=== PATIENT | female | born 1995 | race Caucasian/White ===

== ENCOUNTER 2019-03-06 19:58 | Emergency (ER) | payer SELFPAY ==
[2019-03-06 20:03] VITALS: BP 135/80; PULSE 90; TEMP 98; BMI 19.2
--- NOTE | 2019-03-06 20:18 | PDOC ---
History of Present Illness - General Chief Complaint: Pain Stated Complaint: ABD PAIN Time Seen by Provider: 03/06/19 20:17 - History of Present Illness Initial Comments: 03/06/19 20:25 The patient is a 23 year old female with a history of an arrhythmia who presents for evaluation of abdominal pain. The patient reports LUQ burning/ achy abdominal pain since this morning prompting her presentation to the ED for further evaluation. She states that the patient has been intermittent over the past few weeks, however has been more constant today. She notes that her symptoms worsen after meals as well. She notes a sensation of a fullness in the LUQ as well, but otherwise denies fevers, chills, SOB, chest pain, nausea, vomiting, or changes with urination or bowel movements. Of note, the patient has been using ibuprofen every other day for pain management as well. Past History - Past Medical History Allergies/Adverse Reactions: Allergies Allergy/AdvReac Type Severity Reaction Status Date / Time No Known Allergies Allergy Verified 03/06/19 20:03 Home Medications: Ambulatory Orders NK [No Known Home Medication] 03/06/19 Cardiac Disorders: Yes (ARYTHMIA) COPD: No - Surgical History Cardiac Surgery: Yes (ABLATION) - Suicide/Smoking/Psychosocial Hx Smoking History: Never smoked Review of Systems - Review of Systems Comments:: 03/06/19 20:27 Constitutional: No fevers, chills, fatigue, malaise HEENT: No Rhinorrhea, nasal congestion, visual changes Cardiovascular: No chest pain, syncope, palpitations, lightheadedness Respiratory: No Cough, SOB, Hemoptysis, Gastrointestinal: Abdominal pain. No Nausea, Vomiting, Constipation, Diarrhea, Melena Genitourinary: No Dysuria, Frequency, Urgency, Hesitancy, Hematuria, Flank pain Musculoskeletal: No Myalgia, arthralgia Skin: No rashes, itching, bruising, pallor Neurologic: No Headache, Dizziness, Numbness, Weakness, or Tingling Psychiatric: No Hallucinations. No SI or HI *Physical Exam - Vital Signs Last Vital Signs Temp Pulse Resp BP Pulse Ox 98.0 F 90 18 135/80 99 03/06/19 20:01 03/06/19 20:01 03/06/19 20:01 03/06/19 20:01 03/06/19 20:01 - Physical Exam Comments: 03/06/19 20:28 General Appearance: Nourished. No Apparent Distress HEENT: No Pharyngeal Erythema, Tonsillar Exudate, Tonsillar Erythema Neck: No Cervical Lymphadenopathy Respiratory/Chest: Lungs Clear, Normal Breath Sounds. No Crackles, Rales, Rhonchi, Wheezing Cardiovascular: Regular Rhythm, Regular Rate. No Murmur, Gallops, Rubs Gastrointestinal/Abdominal: Normal Bowel Sounds, Soft. No Guarding, Rebound, Tenderness Musculoskeletal: No CVA Tenderness Extremity: Normal Capillary Refill Integumentary: Normal Color, Dry, Warm Neurologic: Fully Oriented, Alert, Normal Mood/Affect, Normal Response, ED Treatment Course - LABORATORY CBC & Chemistry Diagram: 03/06/19 20:38 03/06/19 20:38 Medical Decision Making - Medical Decision Making 03/06/19 20:28 The patient is a 23 year old female with a history of an arrhythmia who presents for evaluation of abdominal pain. Differential includes but is not limited to: Gastritis, Pancreatitis, Cholecystitis, Infectious, Metabolic Derangement. Given the patient's history and physical exam, it is likely the patient's symptoms are due to a gastritis. However, we will obtain a cbc, cmp, lipase, test to evaluate further. We will treat with pepcid, iv fluids, and maloox and continue to monitor and reassess while here in the ED. 03/06/19 21:31 CBC, cmp, lipase, are unremarkable. The patient was reassessed and reports improvement in their symptoms. We are comfortable discharging the patient home in stable condition. Patient and family made aware of impression and plan, return precautions discussed including but not limited to worsening pain or symptoms, fevers, or signs of infection, chest pain, respiratory distress, inability to tolerate oral intake, dehydration, syncope, or neurologic changes. The patient is to follow up with PMD as recommended within 1 week, follow up information provided and the patient will call for an appointment. The patient is to take medications as instructed for duration of time and continue with supportive care, avoid triggers and precipitants. Patient is safe for outpatient follow-up. *DC/Admit/Observation/Transfer Diagnosis at time of Disposition: Abdominal pain Qualifiers: Abdominal location: unspecified location Qualified Code(s): R10.9 - Unspecified abdominal pain - Discharge Dispostion Disposition: HOME Condition at time of disposition: Stable Decision to Admit order: No - Referrals Referrals: Arianna Owen [Primary Care Provider] - - Patient Instructions Printed Discharge Instructions: JOHN Corbett Additional Instructions: 1) Please follow-up with your primary care doctor in the next 2-3 days. Please call tomorrow to schedule a follow up appointment. If you cannot follow up with your doctor within 1 week please return to the Emergency Department for any urgent issues. 2) Your laboratory / imaging results were normal here in the ER. 3) If you have any worsening of symptoms or any other concerns please return to the ER immediately. Return if worsening symptoms including fevers, headache, vomiting, visual or hearing disturbances, abdominal pain, chest pain, shortness of breath, syncope, dehydration, inability to take things by mouth/vomiting, altered mental status, or worsening concerning symptoms. 4) Please continue taking your home medications as directed. Your medications on discharge include Maloox and Pepcid. - Post Discharge Activity
[2019-03-06] MEDS ORDERED: FAMOTIDINE 20 MG/50 ML IVPB 20 MG/50 ML MG IVPB ONE ×2 (20:24→20:50)
[2019-03-06] MEDS ORDERED: SODIUM CHLORIDE 1,000 ML IV STA (20:24)
[2019-03-06] MEDS ORDERED: MAG HYDROX/AL HYDROX/SIMETH 30 ML UNIT-DOSE CUP PO ONE (20:25)
[2019-03-06 20:47] LABS: BASO % 0.9 % (0-2.0); EOS % 2.3 % (0-4.5); HEMOGLOBIN 12.8 GM/dL (10.7-15.3); LYMPH % 25.6 % (8-40); MCH 31.8 pg (25.7-33.7); MCHC 33.8 g/dl (32.0-36.0); MEAN CELL VOLUME 93.9 fl (80-96); MEAN PLT VOLUME 7.9 fl (7.5-11.1); MONO % 7.8 % (3.8-10.2); NEUT % 63.4 % (42.8-82.8); PLATELET COUNT 217 K/MM3 (134-434); RBC 4.04 M/mm3 (3.60-5.2); RDW 13.4 % (11.6-15.6); WHITE BLOOD COUNT 5.2 K/mm3 (4.0-10.0)
--- NOTE | 2019-03-06 20:47 | PDOC ---
Attending Attestation - HPI HPI: The patient is a 23 year old female, with a significant past medical history of Afib (s/p ablation), who presents to the emergency department with, intermittent burning LUQ pain constant today and worsened with meals. She endorses taking Ibuprofen, with minimal relief. She denies recent fevers, chills, headache or dizziness. She denies recent nausea, vomit, diarrhea or constipation. She denies recent dysuria, frequency, urgency or hematuria. She denies recent chest pain or shortness of breath. Allergies: NKDA Primary Care Physician: Dr. Owen - Physicial Exam PE: 03/06/19 21:35 GENERAL: Well-appearing, well-nourished. No apparent distress. HEENT: Normocephalic, atraumatic. PERRL, EOM intact. CARDIOVASCULAR: Normal S1, S2. Regular rate and rhythm. PULMONARY: Clear to auscultation bilaterally. ABDOMEN: Soft, non-distended, non-tender. EXTREMITIES: Normal ROM in all four extremities. No gross deformities. SKIN: Warm, dry. No rash NEUROLOGICAL: No focal neurological deficits. <Bandar Resendez - Last Filed: 03/06/19 21:35> - Resident Resident Name: Amanuel Caro - ED Attending Attestation I have performed the following: I have examined & evaluated the patient, The case was reviewed & discussed with the resident, I agree w/resident's findings & plan, Exceptions are as noted - HPI HPI: 03/06/19 20:46 23 yo female has had - Medical Decision Making 03/06/19 21:30 23-year-old female has had some gastric burning for which she has been taking NSAIDs. She has benign abdominal exam. She has a negative test. Impression gastritis. She was informed to try PPIs or Maalox when she has this burning feeling. Instead of Motrin d/c home <Mallory Jasmine - Last Filed: 03/06/19 21:45> Attestations - Attestations 03/06/19 21:10 Documentation prepared by Bandar Resendez, acting as medical sales consultant for Mallory Jasmine MD. <Bandar Resendez - Last Filed: 03/06/19 21:35>
[2019-03-06] MEDS ORDERED: MAG HYDROX/AL HYDROX/SIMETH 30 ML UNIT-DOSE CUP ONE (20:50)
[2019-03-06 21:14] LABS: ALK PHOS 49 U/L (45-117); ANION GAP 4 MMOL/L (8-16); BILIRUBIN,TOTAL 0.3 mg/dL (0.2-1); BLOOD UREA NITROGEN 17 mg/dL (7-18); CALCIUM 8.9 mg/dL (8.5-10.1); CHLORIDE 106 mmol/L (98-107); CO2 29 mmol/L (21-32); CREATININE 0.6 mg/dL (0.55-1.3); GLUCOSE,RANDOM 106 mg/dL (74-106); LIPASE 160 U/L (73-393); POTASSIUM 3.6 mmol/L (3.5-5.1); SGOT/AST 11 U/L (15-37); SGPT/ALT 19 U/L (13-61); SODIUM 139 mmol/L (136-145); TOT PROT 7.4 g/dl (6.4-8.2)
== END 2019-03-06 21:41 | disposition home or self-care (01) ==
LOC: JER 19:58
PROC: 3E033GC Introduction of Other Therapeutic Substance into Peripheral Vein, Percutaneous Approach (ICD-10-PCS; principal; 2019-03-06)
DX: R10.9 Unspecified abdominal pain (principal); Z86.79 Personal history of other diseases of the circulatory system
CPT/HCPCS: 36415; 80053; 83690; 84703; 85025; 99283-25; J7030

== ENCOUNTER 2019-06-30 00:39 | Emergency (ER) | payer OTHER ==
[2019-06-30 01:45] VITALS: BP 110/69; PULSE 75; TEMP 98.1; BMI 18.6
--- NOTE | 2019-06-30 02:21 | PDOC ---
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
[2019-06-30] MEDS ORDERED: ACETAMINOPHEN 500 MG TABLET (FP) PO ONE (02:59)
[2019-06-30] MEDS ORDERED: ACETAMINOPHEN 325 MG TABLET (FP) ONE ×2 (03:04→03:05)
--- NOTE | 2019-06-30 04:35 | PDOC ---
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 Pt reports being diagnosed with a left ovarian cyst on Thursday and has an appointment with a surgeon on to discuss removal of the cyst. She is experiencing vinicio same pain as before, 05/09, non-radiating, constant pain since 9PM. Took an advil which didn't help. Denies blood, discharge, or urinary symptoms. LMP June 06. PMH as above PSH denies NKDA Meds: denies Past History - Travel Traveled outside of the country in the last 30 days: No Close contact w/someone who was outside of country & ill: No - Past Medical History Allergies/Adverse Reactions: Allergies Allergy/AdvReac Type Severity Reaction Status Date / Time No Known Allergies Allergy Verified 06/30/19 04:53 Home Medications: Ambulatory Orders NK [No Known Home Medication] 03/06/19 Cardiac Disorders: Yes (ARYTHMIA) COPD: No - Surgical History Cardiac Surgery: Yes (ABLATION) - Suicide/Smoking/Psychosocial Hx Smoking History: Never smoked Have you smoked in the past 12 months: No Information on smoking cessation initiated: No Hx Alcohol Use: No Drug/Substance Use Hx: No Review of Systems - Review of Systems Able to Perform ROS?: Yes Is the patient limited Turkmen proficient: No Constitutional: No: Symptoms Reported HEENTM: No: Symptoms Reported Respiratory: No: Symptoms reported Cardiac (ROS): No: Symptoms Reported ABD/GI: Yes: See HPI : No: Symptoms Reported, Burning, Dysuria, Discharge, Flank Pain Musculoskeletal: No: Symptoms Reported Integumentary: No: Symptoms Reported Neurological: No: Symptoms reported All Other Systems: Reviewed and Negative *Physical Exam - Vital Signs Last Vital Signs Temp Pulse Resp BP Pulse Ox 98.1 F 75 16 110/69 99 06/30/19 01:42 06/30/19 01:42 06/30/19 01:42 06/30/19 01:42 06/30/19 01:42 - Physical Exam Comments: 06/30/19 04:38 Vitals reviewed, afebrile VSS GEN: WDWN woman, NAD, appears stated age, resting in bed CV: RRR, nl s1/s2, no murmurs Pulm: Normal WOB, no SOB, no wheezes / rales / rhonchi Abd: soft, nontender, nondistended, nonperitoneal Ext: WWP, no clubbing / cyanosis / edema SSE: normal mucosa, phisiologic discharge, no blood ED Treatment Course - ADDITIONAL ORDERS Additional order review: Laboratory Results 06/30/19 03:05 Urine HCG, Qual Negative - Medications Given in the ED: ED Medications Discontinued Medications Generic Name Dose Route Start Last Admin Trade Name Freq PRN Reason Stop Dose Admin Acetaminophen 975 mg 06/30/19 02:59 06/30/19 03:10 Tylenol - PO 06/30/19 03:00 975 mg ONCE ONE Administration Medical Decision Making - Medical Decision Making 06/30/19 04:45 23yo woman with known cyst presenting with cyst pain. Non-tender abdomen, little concern for torsion given hx and physical. Patient responded well to Tylenol in the department. Follow-up with surgery will occur later today at pre- arranged appointment. -U Preg Negative -Pelvic without CMT, no discharge Dispo: Home with close follow-up *DC/Admit/Observation/Transfer Diagnosis at time of Disposition: Abdominal pain Qualifiers: Abdominal location: left lower quadrant Qualified Code(s): R10.32 - Left lower quadrant pain - Discharge Dispostion Disposition: HOME Condition at time of disposition: Good Decision to Admit order: No - Referrals - Patient Instructions - Post Discharge Activity
== END 2019-06-30 05:00 | disposition home or self-care (01) ==
LOC: JER 00:39
DX: N83.202 Unspecified ovarian cyst, left side (principal); Z86.79 Personal history of other diseases of the circulatory system
CPT/HCPCS: 76830-TC; 84703; 99281-25

== ENCOUNTER 2021-02-17 13:15 | Emergency (ER) | payer OTHER ==
[2021-02-17 13:20] VITALS: BP 120/80; PULSE 101; TEMP 97; BMI 21.5
[2021-02-17 13:56] LABS: BASO % 0.9 % (0-2.0); EOS % 3.1 % (0-4.5); HEMATOCRIT 40.9 % (32.4-45.2); HEMOGLOBIN 13.9 GM/dL (10.7-15.3); LYMPH % 18.4 % (8-40); MCH 32.2 pg (25.7-33.7); MCHC 33.9 g/dl (32.0-36.0); MEAN CELL VOLUME 94.9 fl (80-96); MEAN PLT VOLUME 7.8 fl (7.5-11.1); MONO % 7.2 % (3.8-10.2); NEUT % 70.4 % (42.8-82.8); PLATELET COUNT 199 K/MM3 (134-434); RBC 4.31 M/mm3 (3.60-5.2); RDW 12.9 % (11.6-15.6); WHITE BLOOD COUNT 8.4 K/mm3 (4.0-10.0)
[2021-02-17 14:03] LABS: EPI CELLS 28 /uL (0-25.1); HYALINE CASTS 3 /uL (0-3.1); URINE APPEARANCE CLEAR; URINE BACTERIA 239 /uL (0-1359); URINE BILIRUBIN NEGATIVE (NEGATIVE); URINE COLOR YELLOW; URINE GLUCOSE (UA) NEGATIVE (NEGATIVE); URINE KETONE NEGATIVE (NEGATIVE); URINE LEUK ESTERASE 2+ (NEGATIVE); URINE NITRITE NEGATIVE (NEGATIVE); URINE PROTEIN NEGATIVE (NEGATIVE); URINE RBC 145 /uL (0-23.9); URINE UROBILINOGEN 0.2 mg/dL (0.2-1.0); URINE WBC 51 /uL (0-25.8)
[2021-02-17 14:11] LABS: INR 0.92 (0.83-1.09); PROTHROMBIN TIME (PATIENT) 11.4 SEC (9.7-13.0)
[2021-02-17 14:14] LABS: ACTIVATED PTT 30.3 SECONDS (25.2-36.5)
[2021-02-17 14:29] LABS: ALBUMIN 3.8 g/dl (3.4-5.0); BLOOD UREA NITROGEN 13.1 mg/dL (7-18); CALCIUM 9.5 mg/dL (8.5-10.1)
[2021-02-17 14:32] LABS: CREATININE 0.8 mg/dL (0.55-1.3)
[2021-02-17 14:34] LABS: BILIRUBIN,TOTAL 0.5 mg/dL (0.2-1); TOT PROT 7.3 g/dl (6.4-8.2)
[2021-02-17 14:35] LABS: POTASSIUM 3.9 mmol/L (3.5-5.1)
[2021-02-17] MEDS ORDERED: KETOROLAC TROMETHAMINE 15 MG/ML VIAL IVPUSH ONE (15:43)
[2021-02-17] MEDS ORDERED: KETOROLAC TROMETHAMINE 15 MG/ML VIAL ONE (15:59)
== END 2021-02-17 16:05 | disposition home or self-care (01) ==
LOC: JER 13:15
PROC: 3E0333Z Introduction of Anti-inflammatory into Peripheral Vein, Percutaneous Approach (ICD-10-PCS; principal; 2021-02-17)
DX: R11.0 Nausea (principal); R10.31 Right lower quadrant pain
CPT/HCPCS: 36415; 74177-TC; 80053; 81003; 83690; 84703; 85025; 85610; 85730; 86850; 86900; 86901; 87086; 99285-25; Q9967